=== PATIENT | male | born 1940 ===

== ENCOUNTER 2018-05-27 07:26 | Outpatient (RCR) | payer MEDICARE, BC ==
[~2018-05-27 07:26] MED LIST: DEXTROSE 50% 50 ML SYR IVP PRN; DIALYSIS ACETAMINOPHEN 325 MG PO PRN; HEPARIN SOD (PORCINE) LOAD IVP PRN; LIDOCAINE/SOD BICARB 8.4% SYR ID PRN; LOPERAMIDE HCL 2 MG CAP PO PRN; PROMETHAZINE HCL 25 MG TAB PO PRN; diphenhydr DIALYSIS 50 MG/ML IVP PRN
[2018-05-27] MEDS: HEPARIN (PORCINE) 1000 UNIT/ML (DIALYSIS) IVP PRN (14:06)
[2018-05-29] MEDS: HEPARIN (PORCINE) 1000 UNIT/ML (DIALYSIS) IVP PRN (09:57)
[2018-05-31] MEDS: HEPARIN (PORCINE) 1000 UNIT/ML (DIALYSIS) IVP PRN (09:53)
== END 2018-05-31 12:00 | disposition home or self-care (01) ==
LOC: DIAL 07:26
PROVIDERS: ATTEND Internal Medicine Nephrology
DX: I12.0 Hypertensive chronic kidney disease with stage 5 chronic kidney disease or end stage renal disease (principal); N18.6 End stage renal disease; N25.81 Secondary hyperparathyroidism of renal origin; D63.1 Anemia in chronic kidney disease; I25.10 Atherosclerotic heart disease of native coronary artery without angina pectoris; E11.9 Type 2 diabetes mellitus without complications; E03.9 Hypothyroidism, unspecified; E78.5 Hyperlipidemia, unspecified; Z99.2 Dependence on renal dialysis
CPT/HCPCS: 90999